=== PATIENT | female | born 1940 | race Caucasian/White ===

== ENCOUNTER 2018-12-09 12:03 | Inpatient (IN) ==
--- NOTE | 2018-12-09 12:48 | Diag Imaging Result Doc PS360 ---
EXAM: CHEST-PORTABLE HISTORY: sob/cp TECHNIQUE: Single view COMPARISON: 06/28/2017 FINDINGS: The lungs are well expanded. The heart is mildly prominent. The vessels are not distended. There are no infiltrates. No effusion identified. IMPRESSION: Stable chest Electronically signed by Calin Holliday 12/09/2018 12:46 PM
[2018-12-09] MEDS ORDERED: LOPRESSOR IV ONE (12:58)
[2018-12-09 13:07] LABS: BASO# 0.04 X1000 (0.0-0.2); BASO% 0.2 % (0.0-0.8); EOS# 0.01 X1000 (0.0-0.7); EOS% 0.1 % (0.0-10.0); HEMATOCRIT 44.1 % (37.0-47.0); HEMOGLOBIN 14.4 g/dL (12.0-16.0); IMM GRAN# 0.05 X1000 (0.0-0.04); IMM GRAN% 0.3 % (0.0-0.5); LYMPH# 1.42 X1000 (1.2-3.4); LYMPH% 8.5 % (20.5-51.1); MCH 27.7 PG (27-31); MCHC 32.7 g/dL (33-37); MCV 84.8 FL (81-99); MONO# 1.43 X1000 (0.11-0.59); MONO% 8.6 % (1.7-9.3); MPV 11.7 FL (7.4-10.4); NEUT% 82.3 % (42.2-75.2); PLT 272 X1000 (130-400); RDW 15.4 % (11.5-14.5); WBC 16.65 X1000 (4.8-10.8)
[2018-12-09 13:11] LABS: INR 1.75; PROTIME 20.8 Seconds (11.0-16.0)
[2018-12-09 13:12] LABS: PTT 36.3 Seconds (22.3-41.8)
[2018-12-09 13:26] LABS: AGAP 12; ALB/GLOB RATIO 1.5; ALKALINE PHOSPHATASE 165 U/L (32-104); BUN 12 mg/dL (8-22); CALCIUM 10.6 mg/dL (8.8-10.2); CHLORIDE 100 mmol/L (98-107); CK PROFILE 40 U/L (24-173); COSMO 279; CREATININE 0.7 mg/dL (0.5-0.9); ESTIMATED GFR > 60; GLUCOSE 201 mg/dL (70-104); GOT 24 U/L (10-30); GPT 17 U/L (10-36); POTASSIUM 4.2 mmol/L (3.5-5.1); SODIUM 137 mmol/L (136-145); TCO2 25 mmol/L (25-35); TOTAL BILIRUBIN 0.95 mg/dL (0.20-1.00); TOTAL PROTEIN 6.7 g/dL (6.3-8.3)
--- NOTE | 2018-12-09 13:34 | EKG Report ---
Test Performed on : 12/09/2018 12:15:00 PM Test Reason : palpitations Blood Pressure : / mmHG Vent. Rate : 113 BPM Atrial Rate : 100 BPM P-R Int : 000 ms QRS Dur : 082 ms QT Int : 330 ms P-R-T Axes : 000 -65 041 degrees QTc Int : 452 ms Atrial fibrillation. with rapid ventricular response. Left axis deviation Possible Anterior infarct (cited on or before 13-JUN-2017) Abnormal ECG When compared with ECG of 28-JUN-2017 11:26, Vent. rate has increased BY 51 BPM Questionable change in initial forces of Septal leads T wave inversion no longer evident in Inferior leads Unconfirmed Result
--- NOTE | 2018-12-09 13:37 | Diag Imaging Result Doc PS360 ---
EXAM: CT HEAD W/O CONTRAST HISTORY: syncopal TECHNIQUE: CT head without contrast COMPARISON: None. FINDINGS: No parenchymal hemorrhage. No epidural or subdural hematoma. No subarachnoid hemorrhage. Mild chronic microvascular ischemic changes. No mass identified on this noncontrasted exam. No hydrocephalus. No sinus opacification. IMPRESSION: 1.No hemorrhage 2.Chronic microvascular ischemic changes This exam was performed using automated exposure control, adjustment of mA or kV according to patient size, and/or use of iterative reconstruction technique. Electronically signed by Calin Holliday 12/09/2018 1:34 PM
[2018-12-09 14:59] LABS: URINE SOURCE CLEAN CATCH
[2018-12-09 15:09] LABS: BILIRUBIN URINE NEGATIVE (NEGATIVE); BLOOD URINE TRACE (NEGATIVE); COLOR YELLOW; GLUCOSE URINE NEGATIVE (NEGATIVE); KETONE URINE NEGATIVE (NEGATIVE); LEUKOCYTES URINE NEGATIVE (NEGATIVE); NITRITE URINE NEGATIVE (NEGATIVE); PROTEIN URINE NEGATIVE (NEGATIVE); SP GRAVITY URINE 1.006; TURBIDITY URINE CLEAR (CLEAR); UR EPITHELIAL CELLS <10 /HPF (<10); URINE BACTERIA NEGATIVE /HPF; URINE RBC <10 /HPF (<10); URINE WBC <10 /HPF (<10); UROBILINOGEN URINE NORMAL (NORMAL)
[2018-12-09] MEDS ORDERED: LASIX IV ONE ×2 (15:30→15:46)
--- NOTE | 2018-12-09 15:35 | PROVIDER DOCUMENTATION ---
This chart was entered by Reba Aquino Scribe, acting as scribe for Maximus Escobedo MD. HPI-Cardiac General - General Chief Complaint: Palpitations Stated Complaint: "AFIB" DR SALAS REFERRED Time Seen by Provider: 12/09/18 12:17 Source: patient Allergies/Adverse Reactions: Patient Allergies Allergy/AdvReac Type Severity Reaction Status Date / Time Sulfa (Sulfonamide Allergy Mild RASH Verified 12/09/18 13:07 Antibiotics) Home Medications: Home Medication List Medication Instructions Recorded Confirmed Last Taken Type Zolpidem [Ambien] 0.5 - 1 tab PO QHS 12/28/15 12/09/18 02/01/16 06:00 History Furosemide 20 mg PO DAILY PRN 02/01/16 12/09/18 02/01/16 06:00 History Metoprolol Succinate E.r. [Toprol 100 mg PO QAM 02/01/16 12/09/18 02/01/16 21:00 History Xl] Potassium Chloride 10 meq PO DAILY PRN 02/01/16 12/09/18 02/01/16 21:00 History Rivaroxaban [Xarelto] 20 mg PO DAILY 02/01/16 12/09/18 02/01/16 21:00 History Digoxin 125 mcg PO DAILY 06/13/17 12/09/18 Unknown History Gabapentin 400 mg PO TID 06/13/17 12/09/18 Unknown History Insulin Glargine,Hum.rec.anlog 10 unit SQ DAILY 06/13/17 12/09/18 Unknown History [Tomauricio Baron] Levothyroxine [Synthroid] 50 microgm PO DAILY 06/13/17 12/09/18 Unknown History Lipase/Protease/Amylase [Adarsh Perez 3 tab PO TID 06/13/17 12/09/18 Unknown History 24,000 Units Capsule] Omeprazole 40 mg PO DAILY 06/13/17 12/09/18 Unknown History Ondansetron HCl [Zofran] 4 mg PO PRN PRN 06/13/17 12/09/18 Unknown History Insulin Lispro [Humalog] 1 unit SQ DIRECTED 12/09/18 12/09/18 Unknown History Lisinopril [Prinivil] 1 tab PO DAILY 12/09/18 12/09/18 Unknown History - History of Present Illness-Cardiac Nature of Presenting Problem: 78 yowf c/o pt was referred by Dr. Salas due to afib. pt sts she had a syncopal episode this am when in bathroom, pt has sore spot on occipital but no other injuries. pt sts last night got up 6-7 times to use restroom. pt has hx of afib. pt rx xorelto at night. pt hasn't missed rx. pt cardiac dr is dr. rico. pt fell 5-6 wks ago. pt a&ox3 and nontoxic. pt is tachy in room. Quality of Pain: reports: none Severity in ED: mild Onset/Duration: this morning Timing: still present Context/Activities at Onset: reports: light activity Palpitation Quality: fast/pounding heart beat History of arrythmia: reports: A-Fib Associated Symptoms: reports: denies symptoms Similar Symptoms Previously?: Yes (fell 5-6wks ago) Review of Systems - Adult - REVIEW OF SYSTEMS - ADULT Constitutional: reports: no symptoms reported Eyes: reports: no symptoms reported Ears, Nose, Mouth & Throat: reports: no symptoms reported Cardiovascular: reports: see HPI, irregular heart rate (tachy), syncope. denies: chest pain, heart murmur, orthopnea Respiratory: reports: no symptoms reported. denies: dyspnea on exertion, shortness of breath, wheezing Gastrointestinal: reports: no symptoms reported Genitourinary: reports: no symptoms reported Musculoskeletal: reports: no symptoms reported Integumentary: reports: no symptoms reported Neurological: reports: no symptoms reported Psychiatric: reports: no symptoms reported Endocrine: reports: no symptoms reported Hematologic/Lymphatic: reports: no symptoms reported Allergic/Immunologic: reports: no symptoms reported All Other Systems: Reviewed and Negative Past History - Adult - PAST MEDICAL HISTORY-ADULT Review of Records: reports: Old Records Reviewed, Nursing Assessment Review, Medications Reviewed, Social history reviewed & non-contributory. Major Childhood Illnesses: reports: history unknown Cardiovascular: reports: A-Fib, HTN Respiratory: reports: denies history Gastrointestinal: reports: GERD, other (bowel issues) Obstetrical/Gynecological: reports: denies history Genitourinary: reports: kidney stones, chronic UTI's Musculoskeletal: reports: denies history Neurological: reports: denies history Endocrine/Immune: reports: Diabetes, Leukemia (CLL), thyroid disorder Other Conditions: reports: other cancer, other (DVT) - PRIOR SURGERIES/PROCEDURES Surgical/Procedure History: reports: reviewed, not pertinent - IMMUNIZATION STATUS Childhood Immunizations: See Nurse Assessment Flu Vaccine: See Nurse Assessment - FAMILY HISTORY Family History: reviewed, not pertinent - SOCIAL HISTORY Smoking: non-smoker Substance Use: none/never Physical Exam-General - PHYSICAL EXAM-ADULT Initial Vital Signs Reviewed: Yes - CONSTITUTIONAL General Appearance: appears well, alert, no apparent distress. negative: cachetic, lethargic, slow to respond - EYES Eyes: PERRL/EOMI, pink conjunctivae - HEAD, EARS, NOSE, MOUTH & THROAT HENMT: normocephalic/atraumatic, moist mucous membranes, normal ENT inspection - NECK Neck: non-tender, full range of motion, supple, normal inspection - RESPIRATORY Respiratory: chest non-tender, lungs clear, normal breath sounds - CARDIOVASCULAR Cardiovascular: normal peripheral pulses, no edema, no gallop, no JVD, no murmur , tachycardia. negative: regular rate, rhythm, JVD, bradycardia, extra beats - GASTROINTESTINAL (ABDOMEN) Abdominal Exam: normal bowel sounds, non tender, soft - LYMPHATIC Lymphatic: no adenopathy - MUSCULOSKELETAL Back Exam: normal inspection, no CVA tenderness, no vertebral tenderness Extremity: normal range of motion, non-tender, normal inspection Peripheral Pulses: dorsalis-pedis (R): 2+, dorsalis-pedis (L): 2+ - SKIN Integumentary: normal color, normal turgor, warm/dry - NEUROLOGIC Neurologic: grossly normal, no motor/sensory deficits - PSYCHIATRIC Psych/Mental Status: normal mood/affect, normal thought content, normal thought process, oriented x 3 Progress - PLAN OF CARE/RESULTS Progress/Plan/Lab Results: Vital Signs - 8 hr 12/09/18 12:06 12/09/18 12:21 12/09/18 12:50 Temperature 97.9 F Pulse Rate 119 H 112 H 114 H Respiratory Rate 18 19 20 Blood Pressure 135/75 156/82 140/83 O2 Sat by Pulse Oximetry 96 96 97 12/09/18 13:33 12/09/18 13:48 12/09/18 14:02 Temperature Pulse Rate 101 H 106 H 88 Respiratory Rate 12 14 Blood Pressure 140/97 142/85 134/81 O2 Sat by Pulse Oximetry 96 95 97 12/09/18 14:15 12/09/18 14:17 12/09/18 14:33 Temperature Pulse Rate 82 81 90 Respiratory Rate Blood Pressure 136/81 126/94 O2 Sat by Pulse Oximetry 97 97 97 12/09/18 14:47 12/09/18 15:00 Temperature Pulse Rate 85 81 Respiratory Rate Blood Pressure 130/72 O2 Sat by Pulse Oximetry 97 97 Laboratory Results - last 24 hr 12/09/18 12/09/18 12/09/18 12:50 12:50 12:50 WBC 16.65 H RBC 5.20 Hgb 14.4 Hct 44.1 MCV 84.8 MCH 27.7 MCHC 32.7 L RDW Std Deviation 15.4 H Plt Count 272 MPV 11.7 H Immature Gran % (Auto) 0.3 Neut % (Auto) 82.3 H Lymph % (Auto) 8.5 L [place] % (Auto) 8.6 Eos % (Auto) 0.1 Baso % (Auto) 0.2 Immature Gran # (Auto) 0.05 H Neut # (Auto) 13.70 H Lymph # (Auto) 1.42 [place] # (Auto) 1.43 H Eos # (Auto) 0.01 Baso # (Auto) 0.04 PT INR PTT (Actin FS) Sodium 137 Potassium 4.2 Chloride 100 Carbon Dioxide 25 Anion Gap 12 BUN 12 Creatinine 0.7 Estimated GFR/1.73 m2 > 60 BUN/Creatinine Ratio 17 Glucose 201 H Calculated Osmolality 279 Calcium 10.6 H Total Bilirubin 0.95 AST 24 ALT 17 Alkaline Phosphatase 165 H Creatine Kinase 40 Troponin T [id number]-Pddqemnkhhs Pept 3684 H Total Protein 6.7 Albumin 4.0 Globulin 2.7 Albumin/Globulin Ratio 1.5 Urine Source Urine Color Urine Turbidity Urine pH Ur Specific Angela Urine Protein Ur Glucose (Stick) Ur Ketones (Stick) Urine Blood Urine Nitrite Urine Bilirubin Urobilinogen Dipstick Urine Leukocytes Urine WBC (Auto) Urine RBC (Auto) U Epithel Cells (Auto) Urine Bacteria (Auto) 12/09/18 12/09/18 12/09/18 12:50 12:50 14:00 WBC RBC Hgb Hct MCV MCH MCHC RDW Std Deviation Plt Count MPV Immature Gran % (Auto) Neut % (Auto) Lymph % (Auto) [place] % (Auto) Eos % (Auto) Baso % (Auto) Immature Gran # (Auto) Neut # (Auto) Lymph # (Auto) [place] # (Auto) Eos # (Auto) Baso # (Auto) PT 20.8 H INR 1.75 PTT (Actin FS) 36.3 Sodium Potassium Chloride Carbon Dioxide Anion Gap BUN Creatinine Estimated GFR/1.73 m2 BUN/Creatinine Ratio Glucose Calculated Osmolality Calcium Total Bilirubin AST ALT Alkaline Phosphatase Creatine Kinase Troponin T < 0.010 Tba-[id number]-[id number] Pept Total Protein Albumin Globulin Albumin/Globulin Ratio Urine Source CLEAN CATCH Urine Color YELLOW Urine Turbidity CLEAR Urine pH 7.0 Ur Specific Angela 1.006 Urine Protein NEGATIVE Ur Glucose (Stick) NEGATIVE Ur Ketones (Stick) NEGATIVE Urine Blood TRACE A Urine Nitrite NEGATIVE Urine Bilirubin NEGATIVE Urobilinogen Dipstick NORMAL Urine Leukocytes NEGATIVE Urine WBC (Auto) <10 Urine RBC (Auto) <10 U Epithel Cells (Auto) <10 Urine Bacteria (Auto) NEGATIVE Orders Category Date Time Status Cardiac Monitoring DIRECTED Care 12/09/18 12:28 Active Oxygen Therapy- ED Nursing DIRECTED Care 12/09/18 12:28 Active Saline Loc NOW Care 12/09/18 12:28 Active CHEST-PORTABLE [RAD] Stat Exams 12/09/18 12:[address] HEAD W/O CONTRAST [CT] Stat Exams 12/09/18 12:30 Completed CBC WITH ELECTRONIC DIFF [HEME] Stat Lab 12/09/18 12:50 Completed CK PROFILE [SP CHEM] Stat Lab 12/09/18 12:50 Completed COMPREHENSIVE METABOLIC PANEL [CHEM] Stat Lab 12/09/18 12:50 Completed DIGOXIN [TDM] Stat Lab 12/09/18 15:21 Ordered PRO B-NATRIURETIC PEPTIDE Stat Lab 12/09/18 12:50 Completed PROTIME WITH INR [COAG] Stat Lab 12/09/18 12:50 Completed PTT [COAG] Stat Lab 12/09/18 12:50 Completed TROPONIN T Stat Lab 12/09/18 12:50 Completed TSH Routine Lab 12/09/18 15:21 Ordered URINALYSIS W/POSS RFLX CULT [URINALYSIS] Stat Lab 12/09/18 14:00 Completed Furosemide [Lasix] Med 12/09/18 15:30 Once 40 mg IV NOW ONE Metoprolol [Lopressor] Med 12/09/18 12:58 Discontinued 5 mg IV NOW ONE CP/SOB/Palp >45 yrs of Age Stat Oth 12/09/18 12:28 Ordered EKG [EKG] Stat Ther 12/09/18 12:28 Draft Result Diagrams: 12/09/18 12:50 12/09/18 12:50 - XRAY 1 XRAY Study: Chest Impression: Normal, See EMR Report ( EXAM: CHEST-PORTABLE HISTORY: sob/cp TECHNIQUE: Single view COMPARISON: 06/28/2017 FINDINGS: The lungs are well expanded. The heart is mildly prominent. The vessels are not distended. There are no infiltrates. No effusion identified. IMPRESSION: Stable chest Electronically signed by Calin Holliday 12/09/2018 12:46 PM) - CT/MRI 1 CT Study: Head Impression: Normal, See EMR Report (EXAM: CT HEAD W/O CONTRAST HISTORY: syncopal TECHNIQUE: CT head without contrast COMPARISON: None. FINDINGS: No parenchymal hemorrhage. No epidural or subdural hematoma. No subarachnoid hemorrhage. Mild chronic microvascular ischemic changes. No mass identified on this noncontrasted exam. No hydrocephalus. No sinus opacification. IMPRESSION: 1.No hemorrhage 2.Chronic microvascular ischemic changes This exam was per formed using automated exposure control, adjustment of mA or kV according to patient size, and/or use of iterative reconstruction technique. Electronically signed by Calin Holliday 12/09/2018 1:34 PM) Comparison with other Films: no prior study - CONSULTS/PCP/HOSPITALIST Notification #1 *Consult/PCP/Hospitalist*: Dr. Rico Time Discussed: 12:33 Consult Disposition: Will see in ED #2 Consult: hospitalist-Dr. Kuhn Time Discussed: 15:31 Consult Disposition: Admit Departure - Departure Date of Disposition Decision: 12/09/18 Time of Disposition Decision: 15:32 DIAGNOSIS: A-fib, CHF (congestive heart failure) Disposition: ADMITTED INPATIENT 09 Certified Medical Emergency: Urgent Condition: Good Referrals and Follow-Ups: Odalys Salas MD [Primary Care Provider] - - Critical Care Note This patient required my direct & personal management of CC.: No Attestation - Physician/ OMER Attestation Patient care was provided by Advanced Practice Provider:: No The physician spent face to face time with patient:: Yes Advanced Practice Provider documentation review:: Supervising physician onsite and consulted in the evaluation and care of this patient. The physician did have a face to face encounter with the patient. This chart was documented by the indicated scribe, (Reba Aquino, Lashanda) and accurately reflects the services I performed and decisions made by me, Maximus Escobedo MD, as attested by the provider's signature.
[2018-12-09] MEDS ORDERED: AMBIEN PO PRN (15:44)
--- NOTE | 2018-12-09 16:08 | CARDIOLOGY CONSULTATION ---
DATE: 12/09/2018 CHIEF COMPLAINT ON PRESENTATION: Syncope. HISTORY OF PRESENT ILLNESS: Ms. Hernandez is a 78-year-old white female with a history of chronic atrial fibrillation who presented for episode of syncope that occurred this morning. She was apparently in her upright position walking in her kitchen. She had no preceding symptoms. Next thing you know she was waking up on the floor. She had no bowel or bladder incontinence. She reports compliance with her medications at home. She has had a couple of other episodes of syncope that have occurred over the last several weeks. One of these seem to occur after she had taken some Ambien and not gone to bed. The preceding episodes prior to this morning also were associated with some lightheadedness and dizziness. She reports good oral intake. No nausea, vomiting and no diarrhea. She has had no infectious symptoms such as cough, dysuria or fevers. PAST MEDICAL HISTORY: 1. Significant for chronic atrial fibrillation maintained on Xarelto. 2. Hypertension. 3. Diabetes. 4. History of GI bleed. 5. Varicose vein status post radiofrequency ablation of bilateral GSVs. 6. Reflux disease. SOCIAL HISTORY: She is . No tobacco use. FAMILY HISTORY: Significant for hypertension. REVIEW OF SYSTEMS: A 10 system review of systems is negative except for those things mentioned in HPI. PHYSICAL EXAMINATION: She is afebrile. Heart rate of 81, blood pressure 130/72.General: She is in no acute distress. HEENT: Oropharynx is moist. Normal dentition. Eye examination shows pink conjunctivae. White sclerae. Neck: Shows no obvious thyromegaly or thyroid tenderness. Cardiovascular: She sounds to be in a irregularly irregular rhythm which is consistent with atrial fibrillation. She has no murmur. She has no S3. She has no lower extremity edema. Her chest exam sounds clear bilaterally. She has no increased work of breathing. Abdomen: Soft, nontender, nondistended. She has no obvious organomegaly. Skin: Warm and dry throughout without any rashes. Neurological: She is moving all extremities well. She has no lateralizing deficits. PERTINENT DATA: Her EKG shows atrial fibrillation with RVR. On presentation she has some poor R- wave progression. Her head CT demonstrated no hemorrhage, chronic microvascular ischemic changes. She had a chest x-ray that was unremarkable for any significant abnormalities. Her lab data shows a white count of 16.6, hematocrit 44, platelet count of 272,000. Her INR is 1.7. Sodium 137, potassium 4.2, BUN 12, creatinine 0.7. ProBNP was 3684 with a negative troponin. Urinalysis was unremarkable. ASSESSMENT: Ms. Hernandez is a 78-year-old female with chronic atrial fibrillation who presented with a syncopal episode. PLAN: We will watch her overnight on telemetry. Check an echocardiogram. I have checked a digoxin level as well as a TSH. I will give her a single dose of Lasix at 40 mg IV x1. We will recheck laboratories in the morning. cc: Dayne Rico MD
[2018-12-09] MEDS ORDERED: TYLENOL PO PRN (16:40)
[2018-12-09] MEDS ORDERED: KLOR-CON PO PRN (16:44)
[2018-12-09] MEDS ORDERED: ZOFRAN PO PRN (16:44)
[2018-12-09] MEDS ORDERED: LASIX PO PRN (16:44)
[2018-12-09] MEDS ORDERED: PATIENT'S OWN MED PO SCH ×2 (17:00→19:00)
[2018-12-09] MEDS: NEURONTIN PO SCH (18:13)
--- NOTE | 2018-12-09 18:52 | HISTORY AND PHYSICAL ---
ADDENDUM: The patient seen and examined by me [id number]. All the laboratory, vital signs and images were reviewed. This patient had an episode of syncope this morning. Apparently, she was sitting on the toilet, then she stood up, did a couple steps and she basically passed out. As per the patient, she has been having dizziness when she tries to change from the sitting position to the standing position. She needs to wait some time and then walk. That sounds to me like orthostatic hypotension, so I will check that. She is not complaining of chest pain or shortness of breath. Basically, her physical exam is benign, except that she is in atrial fibrillation, rate controlled. I will continue with most of her medications. She will be on sliding scale insulin and tomorrow, hopefully, she will have an echocardiogram done and also an EKG in the morning. Cardiology Department on board. I agree with the rest of the nurse practitioner's assessment and plan. cc: Delroy Raymond MD
--- NOTE | 2018-12-09 19:42 | HISTORY AND PHYSICAL ---
PRIMARY CARE M.D.: Dr. Brady. CHIEF COMPLAINT: Syncopal episode. HISTORY OF PRESENT ILLNESS: Mrs. Hernandez is a 78-year-old female, with a history of chronic atrial fib, who states this morning she woke up and she was at her home and she had a syncopal episode, and she apparently hit her head. She did not have any symptoms after she hit her head. She just remembers waking up on the floor. She stated she had one other episode about a week ago where she stated she almost passed out, but she did not actually pass out at that time. The patient is not complaining of any problems at this time. She is not complaining of any lightheadedness or dizziness. She is not complaining of any chest pain. She is not complaining of any nausea, vomiting, or diarrhea. Dr. Dayne Rico did see the patient in the ER. The patient does have a history of atrial fibrillation and she is in atrial fibrillation right now at a rate of 70s and 80s on the monitor. The patient did have a head CT done in the ER that did not show any acute changes. Laboratory findings in the ER did show a slightly elevated white blood cell count of 16.65 and an elevated proBNP of 3684. The patient will be admitted to the PVC floor. We will do an echocardiogram on the patient and monitor the patient closely. Dr. Rico did order the patient to receive a dose of Lasix tonight. We will reorder her home medications. PAST MEDICAL HISTORY: Significant for: 1. Chronic atrial fib, maintained on Xarelto. 2. Hypertension. 3. Diabetes. 4. History of gastrointestinal bleed. 5. Varicose vein, status post radiofrequency ablation of bilateral GOCs. 6. Reflux disease. 7. Lymphoma. PAST SURGICAL HISTORY: 1. Hernia surgery 2 to 3 years ago. 2. 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 3. Knee replacement bilaterally. 4. Cataract surgery. 5. Corrective lens surgeries. FAMILY HISTORY: Significant for hypertension. SOCIAL HISTORY: She is . Denies any tobacco, alcohol, or illicit drug abuse. ALLERGIES: Sulfa. MEDICATIONS: 1. Ambien 10 mg, 1/2 to 1 tablet p.o. at bedtime. 2. Potassium chloride 10 mEq p.o. daily. 3. Xarelto 20 mg p.o. daily. 4. Furosemide 20 mg p.o. daily p.r.n. 5. Metoprolol 100 mg p.o. q.a.m. 6. Gabapentin 400 mg p.o. t.i.d. 7. Creon 3 tablets p.o. t.i.d. 8. Synthroid 50 mcg p.o. daily. 9. Digoxin 125 mcg p.o. daily. 10. Toujeo 10 units subcu daily. 11. Omeprazole 40 mg p.o. daily. 12. Zofran 4 mg p.o. p.r.n. 13. Insulin Humalog 1 unit subcutaneous as directed. 14. Lisinopril 5 mg p.o. daily. REVIEW OF SYSTEMS: A 12 point review of systems has been obtained. All are negative except what is stated above in the HPI. PHYSICAL EXAMINATION: VITAL SIGNS: Temperature 98.1 degrees, pulse rate 81, respiratory rate 15, blood pressure 135/84, O2 saturation 96% on room air. Height 5 feet 4 inches. Weight 149 pounds. GENERAL: This is a 78-year-old female. She is in no acute distress. She is well nourished and well developed. HEENT: Atraumatic, normocephalic. Pupils equal, round, reactive to light. Sclerae are anicteric. Mucous membranes are moist. NECK: Supple. No lymphadenopathy. Trachea is midline. No JVD. No thyromegaly. No bruits. CARDIOVASCULAR: Irregular rate and rhythm. No murmurs, gallops, or rubs appreciated. RESPIRATORY: Lung sounds are clear with equal chest excursion. Respirations are nonlabored. No accessory muscle usage. GI: Abdomen is soft, nontender, and nondistended. Bowel sounds are present x4. NEUROLOGIC: Cranial nerves 2 through 12 are intact. The patient is awake, alert, oriented, able to follow all commands appropriately. MUSCULOSKELETAL: Full distal strength noted. No abnormalities. No deformities. EXTREMITIES: No clubbing, no cyanosis. There is mild trace edema noted to the pedal area. DP and PT pulses are present and palpable. SKIN: Warm, dry, intact. No rashes. No bruises. No diaphoresis. ASSESSMENT AND PLAN: 1. Congestive heart failure. We are going to admit this patient to the PVC unit. She was given one dose of Lasix 40 mg in the emergency room. We are going to continue all her home medications. Dr. Rico was consulted. He recommends us to do echocardiogram tomorrow. He ordered that, so we can get her echocardiogram tomorrow and go with his recommendations. 2. Atrial fibrillation. We did place the patient on ekg monitor tech. We are going to do some orthostatic blood pressures on her, and make sure her heart rate is not dropping. 3. Diabetes. We are going to do blood sugars before meals and at bedtime, and restart all her home diabetes medications, and provide her with sliding scale insulin per protocol. 4. Hypertension. I have restarted all her home blood pressure medications. 5. Gastrointestinal prophylaxis. She does take Prilosec at home. I have restarted that. 6. Deep venous thrombosis prophylaxis. She is on Xarelto at home. I will restart her Xarelto. We have admitted her to the PVC unit. We are going to get echocardiogram in the morning and restart all her home medications, and we have orthostatic blood pressures ordered on her. We will place her on ekg monitor tech. She was given Lasix in the emergency room. We are getting a chest x-ray in the morning. Repeat labs in the morning. We have consulted Dr. Rico. All other further treatment and recommendations pending hospital course and laboratory data. Dictated by SYLVIA Rose for Delroy Raymond MD cc: MD Dr. Hattie Evans Dr[address] MD [facility] CENTERJia
[2018-12-09] MEDS: HUMULIN R SUBQ SCH (20:11)
[2018-12-09] MEDS: CREON PO SCH (20:12)
[2018-12-10] MEDS: HUMULIN R SUBQ SCH ×2 (06:23→11:39)
[2018-12-10 06:49] LABS: AGAP 13; BUN 17 mg/dL (8-22); CALCIUM 9.7 mg/dL (8.8-10.2); CHLORIDE 99 mmol/L (98-107); COSMO 281; CREATININE 0.7 mg/dL (0.5-0.9); ESTIMATED GFR > 60; GLUCOSE 173 mg/dL (70-104); MAGNESIUM 1.6 mg/dL (1.5-2.7); POTASSIUM 3.7 mmol/L (3.5-5.1); SODIUM 138 mmol/L (136-145); TCO2 26 mmol/L (25-35)
[2018-12-10] MEDS ORDERED: PRILOSEC PO SCH (07:00)
[2018-12-10] MEDS ORDERED: SYNTHROID PO SCH (07:00)
--- NOTE | 2018-12-10 07:04 | Diag Imaging Result Doc PS360 ---
EXAM: CHEST-PORTABLE 12/10/2018 HISTORY: CHF TECHNIQUE: AP portable at 0553 COMMENT: There is probable COPD. The heart size is at the upper limits of normal. There is some atelectasis or pneumonia in the left lower lobe. This appears worse than on the previous examination of 12/09/2018. IMPRESSION: Atelectasis versus pneumonia left lower lobe. Electronically signed by Flavio Ricketts 12/10/2018 7:01 AM
[2018-12-10 07:17] LABS: HEMOGLOBIN A1C 6.8 % (4.8-6.0)
--- NOTE | 2018-12-10 07:19 | EKG Report ---
Test Performed on : 12/10/2018 06:47:08 AM Test Reason : syncope Blood Pressure : / mmHG Vent. Rate : 078 BPM Atrial Rate : 120 BPM P-R Int : 000 ms QRS Dur : 088 ms QT Int : 378 ms P-R-T Axes : 000 -53 012 degrees QTc Int : 430 ms Atrial fibrillation. Left anterior fascicular block Septal infarct (cited on or before 13-JUN-2017) Abnormal ECG When compared with ECG of 09-DEC-2018 12:15, (Unconfirmed) Questionable change in initial forces of Septal leads Confirmed by Sukhdev Puckett MD ([id number]) on 12/10/2018 11:08:07 PM
[2018-12-10 07:20] LABS: BASO# 0.03 X1000 (0.0-0.2); BASO% 0.4 % (0.0-0.8); EOS# 0.24 X1000 (0.0-0.7); EOS% 3.6 % (0.0-10.0); HEMATOCRIT 44.4 % (37.0-47.0); HEMOGLOBIN 14.5 g/dL (12.0-16.0); IMM GRAN# 0.02 X1000 (0.0-0.04); IMM GRAN% 0.3 % (0.0-0.5); LYMPH# 1.78 X1000 (1.2-3.4); LYMPH% 26.6 % (20.5-51.1); MCH 27.9 PG (27-31); MCHC 32.7 g/dL (33-37); MCV 85.4 FL (81-99); MONO# 1.04 X1000 (0.11-0.59); MONO% 15.6 % (1.7-9.3); MPV 12.3 FL (7.4-10.4); NEUT# 3.57 X1000 (1.4-6.5); NEUT% 53.5 % (42.2-75.2); PLT 190 X1000 (130-400); WBC 6.68 X1000 (4.8-10.8)
[2018-12-10] MEDS: CREON PO SCH ×3 (08:23→11:40)
[2018-12-10] MEDS: NEURONTIN PO SCH ×2 (08:24→13:07)
--- NOTE | 2018-12-10 08:52 | PROGRESS NOTE ---
DATE: 12/10/2018 SUBJECTIVE: This patient is resting comfortably in bed. Having checking the orthostatic vital signs and from the supine position to the sitting position and standing position, the blood pressure dropped significantly. At this moment, she is getting an echocardiogram done. Cardiology department on board. PHYSICAL EXAMINATION: Vital Signs: Temperature 97.6 degrees, pulse 71, respiratory rate 18, blood pressure 123/71, oxygen saturation 96 on room air. HEENT: Head normocephalic. No trauma. PERRLA. Neck: Supple. No JVD. No masses. Central trachea. Chest: Clear to auscultation. No wheezing. No rales. Cardiovascular: Irregularly irregular rate and rhythm. Abdomen: Soft, nontender, nondistended. No hepatosplenomegaly. Extremities: No edema, no clubbing, no cyanosis. Neurological Examination: The patient is alert. She is oriented x3. No focal deficits. LABORATORY DATA: WBC 6.6, hemoglobin 14.5, hematocrit 44.4, platelets 190,000. Sodium 138, potassium 3.7, chloride 99, bicarbonate 26, BUN 17, creatinine 0.7, glucose 173, calcium 9.7, magnesium 1.6. ProBNP 1226. ASSESSMENT AND PLAN: 1. Syncope. I do believe this is related to orthostatic hypotension. I have been checking her orthostatics and the most recent one, her blood pressure dropped from the supine position from 115/77 to 88/57 and then to the standing position to 58/43. As per the patient, every time she stands up, she needs to wait a little bit before starting walking. Otherwise, she will be dizzy. We need to rule out other causes of syncope. Pulse seems to be stable. She was a little bit tachycardic upon admission but has normalized. 2. History of congestive heart failure. B-type natriuretic peptide was elevated. She is not complaining of shortness of breath. She received a single dose of Lasix in the emergency room. B-type natriuretic peptide decreased compared with yesterday. Pending new echocardiogram. 3. History of atrial fibrillation. Continue home medications. 4. Diabetes, controlled. Hemoglobin A1c is good at 6.8. I will continue with the same management. 5. Hypertension, stable. Actually, she has been having low blood pressure on and off upon standing. 6. Gastrointestinal prophylaxis. She has been taking Prilosec at home. 7. Deep vein thrombosis prophylaxis. She is on anticoagulation due to her atrial fibrillation. I will continue with that. 8. History of lymphoma. Aware. No issues at this moment. cc: Delroy Raymond MD
[2018-12-10] MEDS ORDERED: PRINIVIL PO SCH (09:00)
[2018-12-10] MEDS ORDERED: TOPROL XL PO SCH (09:00)
[2018-12-10] MEDS ORDERED: INSULIN PEN NEEDLES ONE (09:00)
[2018-12-10] MEDS ORDERED: TOUJEO SOLOSTAR SUBQ SCH (09:00)
[2018-12-10] MEDS ORDERED: XARELTO PO SCH (09:00)
[2018-12-10] MEDS ORDERED: LANOXIN PO SCH (09:00)
[2018-12-10 11:11] VITALS: BP 129/80
--- NOTE | 2018-12-10 13:16 | CARDIOLOGY PROGRESS NOTE ---
DATE: 12/10/2018 SUBJECTIVE: Ms. Hernandez reports she has done well today. She has no complaints. PHYSICAL EXAMINATION: Vital Signs: She is afebrile, heart rate 86, blood pressure 129/80. General: She is in no acute distress. Cardiovascular: She sounds to be in an irregularly irregular rhythm, which is consistent with her atrial fibrillation. She has no lower extremity edema. Chest: Sounds clear bilaterally. No increased work of breathing. Abdomen: Soft, nontender. PERTINENT DATA: White count 6.6, her hematocrit is 44, her platelet count is 190,000. Her sodium is 138, potassium 3.7, BUN 17, creatinine 0.7. Her proBNP is down to 1926. Magnesium level 1.6. ASSESSMENT: Ms. Hernandez is a 78-year-old female with chronic atrial fibrillation, who presented with a syncopal spell. PLAN: Her atrial fibrillation seems to be well controlled. She has had an episode of diastolic failure, and diuresed well with her Lasix yesterday. I will place her on 20 mg of daily Lasix, which was changed from p.r.n. I have also changed her potassium over to daily. We will do a 2- week heart monitor from home to evaluate for arrhythmias. I will review her echocardiogram, and if this is unremarkable, then she can likely be discharged today. cc: Dayne Rico MD
--- NOTE | 2018-12-10 17:28 | DISCHARGE SUMMARY ---
ADMISSION DATE: 12/10/2018 DISCHARGE DATE: 12/10/2018 DISCHARGE DIAGNOSES: 1. Syncope. 2. Possible orthostatic hypotension. 3. History of congestive heart failure. 4. History of atrial fibrillation. 5. Diabetes with a hemoglobin A1c of 6.8. 6. Hypertension. 7. History of lymphoma. PROCEDURES PERFORMED: 1. Chest x-ray dated 12/09/2018: Impression stable chest. 2. Head CT scan dated 12/09/2018. No hemorrhage, chronic microvascular ischemic changes. 3. Chest x-ray dated 12/10/2018, atelectasis versus pneumonia, left lower lobe. 4. Echocardiogram dated 12/10/2018, pending results, but already evaluated by Cardiology Department and apparently stable. HOSPITAL COURSE: A 78-year-old female with a past medical history of atrial fibrillation, hypertension, diabetes, history of GI bleed, reflux disease varicose vein, status post radiofrequency ablation of bilateral GOCCS, and lymphoma admitted on 12/09/2018. Apparently, that morning she woke up, and she was in at her home, and she had a syncopal episode. She hit her head and CT scan has been negative. Apparently she was sitting on the toilet she stand up and started walking immediately and 2 steps after that she just felt dizzy had a syncopal episode. Apparently she did have any symptoms after she hit her head. She just remembers waking up on the floor. Apparently, she had 1 other episode about a week ago when she almost passed out. The patient was evaluated by Cardiology Department in the emergency room. She does have a history of atrial fibrillation and actually she pending hospitalization with atrial fibrillation and the rate was in the 70s and 80s. Like I mentioned before, the CT scan of the head was negative. Chest x- ray negative as well. Chest x-ray today show so showed some atelectasis versus pneumonia at the level lower lobe, but this patient is asymptomatic and actually the white blood cell count normalized without antibiotics. She is not complaining of cough or shortness of breath, fever or chills. Cardiology Department has checked her echocardiogram and it looks like this patient can be safely discharged home. I explained in detail to the patient and the family members at the bedside that she needs to be careful when she sits up or stand up because she can have dizziness due to orthostatic low blood pressure, especially now that she is going to be on Lasix and also she is on beta blockers. They seem to understand. She will be discharged home. She will follow up with her primary doctor in 1 to 2 weeks. Also, Dr. Rico will arrange a monitoring and evaluation advisor for this patient to be used at home for a few weeks and then re-evaluate this patient as an outpatient. At the moment of discharge this patient was completely asymptomatic, tolerating p.o. with no new issues. PHYSICAL EXAMINATION: Vital Signs: Temperature 97.6, pulse 86, respiratory rate 18, blood pressure 129/80, oxygen saturation 97% on room air. HEENT: Head normocephalic no trauma PERRLA. Neck: Supple. No JVD. No masses. Central trachea. Chest: Clear to auscultation. No wheezing. No rales. Cardiovascular: Irregularly irregular rate and rhythm. Abdomen: Soft, nontender, nondistended. No hepatosplenomegaly. Extremities: No edema, no clubbing, no cyanosis. Neurological: The patient is alert. She is oriented x3. No focal deficits. LABORATORY: WBC 6.6, hemoglobin 14.5, hematocrit 44.4, platelets 190,000. Sodium 138, potassium 3.7, chloride 99, bicarbonate 26, BUN 17, creatinine 0.7 glucose 173. Hemoglobin A1c 6.8, calcium 9.7, magnesium 1.6, TSH 1.52. DISCHARGE MEDICATIONS: 1. Digoxin 125 mcg p.o. daily. 2. Furosemide 20 mg p.o. daily. 3. Gabapentin 400 mg p.o. t.i.d. 4. Insulin glargine 10 units subcutaneous daily. 5. Insulin lispro as directed. 6. Levothyroxine 50mcg p.o. daily. 7. Creon 84808 units capsule 3 capsules p.o. t.i.d. 8. Lisinopril 1 tablet p.o. daily 5 mg. 9. Metoprolol succinate ER 100 mg p.o. q.a.m.. 10. Omeprazole 40 mg p.o. daily. 11. Zofran 4 mg p.o. as needed for nausea vomiting. 12. Potassium chloride 10 mg 10 mEq p.o. daily. 13. Xarelto 10 mg p.o. daily. 14. Zolpidem 1 tablet p.o. at bedtime, 5 to 10 mg daily. TIME SPENT: Dscharging this patient 30 minutes. cc: Delroy Raymond MD
--- NOTE | 2018-12-10 18:52 | ECHO REPORT ---
ORDER DATE: 12/10/2018 MEASUREMENTS: Septal thickness 0.9. Left ventricular internal diameter diastole 4.4, posterior wall thickness 0.9. Left ventricular internal diameter in systole 2.6, aortic root 3.3, left atrium 4.0. SUMMARY: 1. Fair quality study. 2. Aortic valve is trileaflet and opens normally on 2-dimensional images. Peak gradient across aortic valve is less than 10 mmHg. There is trace aortic regurgitation. Mitral, tricuspid, and pulmonic valves are without evidence of structural abnormality with very mild mitral regurgitation, mild tricuspid regurgitation, and trace pulmonic insufficiency. The estimated systolic PA pressure by Doppler is 25 to 30 mmHg. Aortic root is normal size. 3. Normal left ventricular dimensions demonstrated. Estimated left ejection fraction appears to be at least 70%. No regional wall motion abnormalities are evident. Left atrium is mildly enlarged on 2-dimensional images. Right atrium right ventricle are normal size with normal right ventricular systolic function. 4. No pericardial effusion. 5. Appearance of inferior vena cava suggests normal central venous pressure. cc: MD Dayne Kasper MD
[2018-12-11] MEDS ORDERED: LASIX PO SCH (09:00)
[2018-12-11] MEDS ORDERED: KLOR-CON PO SCH (09:00)
== END 2018-12-10 15:21 | disposition home or self-care (01) | DRG 312 ==
LOC: ED 12:03 → 2N 12:03
PROVIDERS: ATTEND Internal Medicine

== ENCOUNTER 2019-04-24 07:52 | Inpatient (IN) ==
[2019-04-24] MEDS ORDERED: ASPIRIN PO ONE (08:18)
[2019-04-24] MEDS ORDERED: ASPIRIN PR ONE (08:18)
--- NOTE | 2019-04-24 08:18 | EKG Report ---
Test Performed on : 04/24/2019 08:09:27 AM Test Reason : HEART RACING Blood Pressure : / mmHG Vent. Rate : 100 BPM Atrial Rate : 094 BPM P-R Int : 000 ms QRS Dur : 084 ms QT Int : 346 ms P-R-T Axes : 000 -60 -18 degrees QTc Int : 446 ms Atrial fibrillation. Left axis deviation Nonspecific ST abnormality Abnormal ECG When compared with ECG of 10-DEC-2018 06:47, Criteria for Septal infarct are no longer present Nonspecific T wave abnormality, worse in Inferior leads Unconfirmed Result
[2019-04-24 08:29] LABS: BASO# 0.05 X1000 (0.0-0.2); BASO% 0.4 % (0.0-0.8); EOS# 0.08 X1000 (0.0-0.7); EOS% 0.7 % (0.0-10.0); HEMOGLOBIN 13.6 g/dL (12.0-16.0); IMM GRAN# 0.06 X1000 (0.0-0.04); IMM GRAN% 0.5 % (0.0-0.5); LYMPH# 2.44 X1000 (1.2-3.4); LYMPH% 20.1 % (20.5-51.1); MCH 29.4 PG (27-31); MCHC 32.4 g/dL (33-37); MCV 90.9 FL (81-99); MONO# 1.19 X1000 (0.11-0.59); MONO% 9.8 % (1.7-9.3); MPV 12.2 FL (7.4-10.4); NEUT# 8.34 X1000 (1.4-6.5); NEUT% 68.5 % (42.2-75.2); PLT 237 X1000 (130-400); RBC 4.62 XMIL (4.2-5.4); RDW 15.5 % (11.5-14.5); WBC 12.16 X1000 (4.8-10.8)
--- NOTE | 2019-04-24 08:45 | Diag Imaging Result Doc PS360 ---
EXAM: CHEST-2 VIEWS 04/24/2019 HISTORY: HEART RACING TECHNIQUE: PA and lateral chest COMMENT: There is ill-defined opacity in the right upper lobe which was not present on 12/10/2018. Otherwise are has been no significant change. IMPRESSION: Right upper lobe pneumonia. Electronically signed by Flavio Ricketts 04/24/2019 8:43 AM
[2019-04-24 08:49] LABS: INR 1.61; PROTIME 19.5 Seconds (11.0-16.0)
[2019-04-24 08:50] LABS: PTT 43.1 Seconds (22.3-41.8)
[2019-04-24 08:56] LABS: AGAP 15; ALB/GLOB RATIO 1.6; ALBUMIN 3.9 g/dL (3.5-5.0); ALKALINE PHOSPHATASE 155 U/L (32-104); BUN 17 mg/dL (8-22); CALCIUM 10.2 mg/dL (8.8-10.2); CHLORIDE 100 mmol/L (98-107); CK PROFILE 26 U/L (24-173); COSMO 283; CREATININE 0.6 mg/dL (0.5-0.9); ESTIMATED GFR > 60; GLUCOSE 174 mg/dL (70-104); GOT 11 U/L (10-30); GPT 12 U/L (10-36); POTASSIUM 4.2 mmol/L (3.5-5.1); SODIUM 139 mmol/L (136-145); TCO2 24 mmol/L (25-35); TOTAL BILIRUBIN 1.18 mg/dL (0.20-1.00); TOTAL PROTEIN 6.3 g/dL (6.3-8.3)
--- NOTE | 2019-04-24 09:11 | PROVIDER DOCUMENTATION ---
HPI-General Adult - General Chief Complaint: Weakness Stated Complaint: HEART ISSUE/HEART PT Time Seen by Provider: 04/24/19 09:10 Source: patient Allergies/Adverse Reactions: Patient Allergies Allergy/AdvReac Type Severity Reaction Status Date / Time Sulfa (Sulfonamide Allergy Mild RASH Verified 04/24/19 10:55 Antibiotics) Home Medications: Home Medication List Medication Instructions Recorded Confirmed Last Taken Type Zolpidem [Ambien] 0.5 - 1 tab PO QHS 12/28/15 12/09/18 02/01/16 06:00 History Metoprolol Succinate E.r. [Toprol 100 mg PO QAM 02/01/16 12/09/18 02/01/16 21:00 History Xl] Rivaroxaban [Xarelto] 20 mg PO DAILY 02/01/16 12/09/18 02/01/16 21:00 History Digoxin 125 mcg PO DAILY 06/13/17 12/09/18 Unknown History Gabapentin 400 mg PO TID 06/13/17 12/09/18 Unknown History Insulin Glargine,Hum.rec.anlog 10 unit SQ DAILY 06/13/17 12/09/18 Unknown History [Tousabi Solostjessie] Levothyroxine [Synthroid] 50 microgm PO DAILY 06/13/17 12/09/18 Unknown History Lipase/Protease/Amylase [Creon Dr 3 tab PO TID 06/13/17 12/09/18 Unknown History 24,000 Units Capsule] Omeprazole 40 mg PO DAILY 06/13/17 12/09/18 Unknown History Ondansetron HCl [Zofran] 4 mg PO PRN PRN 06/13/17 12/09/18 Unknown History Insulin Lispro [Humalog] 1 unit SQ DIRECTED 12/09/18 12/09/18 Unknown History Lisinopril [Prinivil] 1 tab PO DAILY 12/09/18 12/09/18 Unknown History Furosemide 20 mg PO DAILY PRN #90 tab 12/10/18 Unknown Rx Potassium Chloride E.r. [Klor-Con] 10 meq PO DAILY #90 tab 12/10/18 Unknown Rx - History of Present Illness -Gen Adult Nature of Presenting Problems: Pt. is 79 yof that presents with c/o weakness and right sided CP. Pt. reports some SOB. states patient has not eaten in three days. She reports a Hx of A-fib and DM. Location of Pain/Injury: reports: chest. denies: none, head, face, mouth, neck, upper extremity, hand(s), abdomen, back, pelvis, genitalia, lower extremity, feet, upper body, lower body, generalized, other Pain Radiation: reports: no radiation. denies: arm(s), back, buttocks, chest, epigastric, feet, groin, jaw, flank (L), legs (lower), LLQ, LUQ, neck, periumbilical, flank (R), RLQ, RUQ, shoulder(s), scapula, scrotal, sternal notch, suprapubic, legs (upper), urethral, vaginal, other Quality of Pain: reports: aching. denies: burning, pressure, tightness Severity: reports: mild. denies: moderate, severe Onset/Duration: reports: gradual, 3 days ago Timing: reports: still present. denies: improving, intermittent, getting worse Context/Activities at Onset: reports: none. denies: light activity, moderate activity, vigorous activity, recent emotional stress, recent physical stress, recent trauma history, possible bad food, cold exposure, eating, out of country travel, rest, sleep, sexual activity, other Modifying Factors: improves with: nothing Associated Symptoms: reports: chest pain, cough, fever/chills, loss of appetite, malaise, shortness of breath, weakness. denies: denies symptoms, anxiety, arm pain, back/neck pain, constipation, diaphoresis, diarrhea, dizziness, EENT symptoms, fatigue, genitourinary problems, headaches, heartburn, joint pain, muscle aches, sinus congestion/drainage, nausea, rash, seizure, sensory/motor loss, pain with inspiration, swelling/mass in abdomen, syncope, vomiting, trouble walking, other Similar Symptoms Previously?: Yes Recently seen or treated by another doctor?: No Review of Systems - Adult - REVIEW OF SYSTEMS - ADULT Constitutional: reports: see HPI, chills, fatique. denies: night sweats, weight gain, weight loss Eyes: reports: no symptoms reported Ears, Nose, Mouth & Throat: reports: no symptoms reported Cardiovascular: reports: see HPI, chest pain, palpitations. denies: orthopnea, poor circulation, syncope Respiratory: reports: see HPI, cough. denies: hemoptysis, pleurisy, shortness of breath Gastrointestinal: reports: no symptoms reported Genitourinary: reports: no symptoms reported Musculoskeletal: reports: no symptoms reported Integumentary: reports: no symptoms reported Neurological: reports: no symptoms reported Psychiatric: reports: no symptoms reported Past History - Adult - PAST MEDICAL HISTORY-ADULT Review of Records: reports: Old Records Reviewed, Nursing Assessment Review, Medications Reviewed, Social history reviewed & non-contributory. Major Childhood Illnesses: reports: history unknown Cardiovascular: reports: A-Fib, HTN Respiratory: reports: denies history Gastrointestinal: reports: GERD, other (bowel issues) Obstetrical/Gynecological: reports: denies history Genitourinary: reports: denies history Musculoskeletal: reports: denies history Neurological: reports: denies history Endocrine/Immune: reports: Diabetes, Leukemia (CLL), thyroid disorder Other Conditions: reports: other cancer, other (DVT) - PRIOR SURGERIES/PROCEDURES Surgical/Procedure History: reports: reviewed, not pertinent - IMMUNIZATION STATUS Childhood Immunizations: See Nurse Assessment Flu Vaccine: See Nurse Assessment - FAMILY HISTORY Family History: reviewed, not pertinent - SOCIAL HISTORY Smoking: denies Physical Exam-General - PHYSICAL EXAM-ADULT Initial Vital Signs Reviewed: Yes - CONSTITUTIONAL General Appearance: alert, moderate distress, lethargic. negative: anxious, slow to respond, obtunded, combative - EYES Eyes: PERRL/EOMI, pink conjunctivae - HEAD, EARS, NOSE, MOUTH & THROAT HENMT: normocephalic/atraumatic, moist mucous membranes, TMs normal, pharynx normal. negative: angioedema, frontal tenderness, maxillary tenderness - NECK Neck: non-tender, full range of motion, supple, normal inspection - RESPIRATORY Respiratory: lungs clear, normal breath sounds. negative: crackles, rales, rhonchi - CARDIOVASCULAR Cardiovascular: normal peripheral pulses, no JVD, tachycardia, irregularly irre gular - GASTROINTESTINAL (ABDOMEN) Abdominal Exam: normal bowel sounds, non tender, soft - LYMPHATIC Lymphatic: no adenopathy - MUSCULOSKELETAL Back Exam: normal inspection, no CVA tenderness, no vertebral tenderness Extremity: normal range of motion, non-tender, normal inspection Peripheral Pulses: radial (R): 2+, radial (L): 2+ - SKIN Integumentary: pallor. negative: cyanosis, erythema, swelling, tenderness - NEUROLOGIC Neurologic: grossly normal, no motor/sensory deficits - PSYCHIATRIC Psych/Mental Status: normal mood/affect, normal thought content, normal thought process, oriented x 3. negative: anxious, paranoid, tearful Progress - PLAN OF CARE/RESULTS Progress/Plan/Lab Results: Vital Signs - 8 hr 04/24/19 08:00 Temperature 97.5 F L Pulse Rate 96 H Respiratory Rate 16 Blood Pressure 144/78 O2 Sat by Pulse Oximetry 97 Laboratory Results - last 24 hr 04/24/19 04/24/19 04/24/19 08:13 08:13 08:13 WBC RBC Hgb Hct MCV MCH MCHC RDW Std Deviation Plt Count MPV Immature Gran % (Auto) Neut % (Auto) Lymph % (Auto) [place] % (Auto) Eos % (Auto) Baso % (Auto) Immature Gran # (Auto) Neut # (Auto) Lymph # (Auto) [place]ard # (Auto) Eos # (Auto) Baso # (Auto) PT INR PTT (Actin FS) Sodium 139 Potassium 4.2 Chloride 100 Carbon Dioxide 24 L Anion Gap 15 BUN 17 Creatinine 0.6 Estimated GFR/1.73 m2 > 60 BUN/Creatinine Ratio 28 Glucose 174 H Calculated Osmolality 283 Calcium 10.2 Total Bilirubin 1.18 H AST 11 ALT 12 Alkaline Phosphatase 155 H Creatine Kinase 26 Troponin T High Sens 11 Bxt-G-Ficuciekvih Pept 3054 H Total Protein 6.3 Albumin 3.9 Globulin 2.4 Albumin/Globulin Ratio 1.6 04/24/19 04/24/19 08:13 08:13 WBC 12.16 H RBC 4.62 Hgb 13.6 Hct 42.0 MCV 90.9 MCH 29.4 MCHC 32.4 L RDW Std Deviation 15.5 H Plt Count 237 MPV 12.2 H Immature Gran % (Auto) 0.5 Neut % (Auto) 68.5 Lymph % (Auto) 20.1 L Seward % (Auto) 9.8 H Eos % (Auto) 0.7 Baso % (Auto) 0.4 Immature Gran # (Auto) 0.06 H Neut # (Auto) 8.34 H Lymph # (Auto) 2.44 Seward # (Auto) 1.19 H Eos # (Auto) 0.08 Baso # (Auto) 0.05 PT 19.5 H INR 1.61 PTT (Actin FS) 43.1 H Sodium Potassium Chloride Carbon Dioxide Anion Gap BUN Creatinine Estimated GFR/1.73 m2 BUN/Creatinine Ratio Glucose Calculated Osmolality Calcium Total Bilirubin AST ALT Alkaline Phosphatase Creatine Kinase Troponin T High Sens Vve-[id number]-Idhnuqsrncf Pept Total Protein Albumin Globulin Albumin/Globulin Ratio Orders Category Date Time Status Cardiac Monitoring DIRECTED Care 04/24/19 08:18 Active Oxygen Therapy- ED Nursing DIRECTED Care 04/24/19 08:18 Active Saline Loc NOW Care 04/24/19 08:18 Active CHEST-2 VIEWS [RAD] Stat Exams 04/24/19 08:18 Completed CBC WITH ELECTRONIC DIFF [HEME] Stat Lab 04/24/19 08:13 Completed CK PROFILE [SP CHEM] Stat Lab 04/24/19 08:13 Completed COMPREHENSIVE METABOLIC PANEL [CHEM] Stat Lab 04/24/19 08:13 Completed PRO B-NATRIURETIC PEPTIDE Stat Lab 04/24/19 08:13 Completed PROTIME WITH INR [COAG] Stat Lab 04/24/19 08:13 Completed PTT [COAG] Stat Lab 04/24/19 08:13 Completed TROPONIN T HIGH SENSITIVITY Stat Lab 04/24/19 08:13 Completed Aspirin Med 04/24/19 08:18 Discontinued 300 mg DE NOW ONE Aspirin Med 04/24/19 08:18 Discontinued 325 mg PO NOW ONE CP/SOB/Palp >45 yrs of Age Stat Oth 04/24/19 08:18 Ordered EKG [EKG] Stat Ther 04/24/19 08:04 Draft Laboratory Tests 04/24/19 04/24/19 04/24/19 08:13 08:13 08:13 WBC RBC Hgb Hct MCV MCH MCHC RDW Std Deviation Plt Count MPV Immature Gran % (Auto) Neut % (Auto) Lymph % (Auto) Seward % (Auto) Eos % (Auto) Baso % (Auto) Immature Gran # (Auto) Neut # (Auto) Lymph # (Auto) Seward # (Auto) Eos # (Auto) Baso # (Auto) PT INR PTT (Actin FS) Sodium 139 Potassium 4.2 Chloride 100 Carbon Dioxide 24 L Anion Gap 15 BUN 17 Creatinine 0.6 Estimated GFR/1.73 m2 > 60 BUN/Creatinine Ratio 28 Glucose 174 H Calculated Osmolality 283 Calcium 10.2 Total Bilirubin 1.18 H AST 11 ALT 12 Alkaline Phosphatase 155 H Creatine Kinase 26 Troponin T High Sens 11 Ltn-G-Qmazgoquzyz Pept 3054 H Total Protein 6.3 Albumin 3.9 Globulin 2.4 Albumin/Globulin Ratio 1.6 Plasma Lactate Urine Source Urine Color Urine Turbidity Urine pH Ur Specific Elizabeth Urine Protein Ur Glucose (Stick) Ur Ketones (Stick) Urine Blood Urine Nitrite Urine Bilirubin Urobilinogen Dipstick Urine Leukocytes Urine WBC (Auto) Urine RBC (Auto) U Epithel Cells (Auto) Urine Bacteria (Auto) 04/24/19 04/24/19 04/24/19 08:13 08:13 09:50 WBC 12.16 H RBC 4.62 Hgb 13.6 Hct 42.0 MCV 90.9 MCH 29.4 MCHC 32.4 L RDW Std Deviation 15.5 H Plt Count 237 MPV 12.2 H Immature Gran % (Auto) 0.5 Neut % (Auto) 68.5 Lymph % (Auto) 20.1 L Seward % (Auto) 9.8 H Eos % (Auto) 0.7 Baso % (Auto) 0.4 Immature Gran # (Auto) 0.06 H Neut # (Auto) 8.34 H Lymph # (Auto) 2.44 Seward # (Auto) 1.19 H Eos # (Auto) 0.08 Baso # (Auto) 0.05 PT 19.5 H INR 1.61 PTT (Actin FS) 43.1 H Sodium Potassium Chloride Carbon Dioxide Anion Gap BUN Creatinine Estimated GFR/1.73 m2 BUN/Creatinine Ratio Glucose Calculated Osmolality Calcium Total Bilirubin AST ALT Alkaline Phosphatase Creatine Kinase Troponin T High Sens Erm-K-Uvondxxxiqu Pept Total Protein Albumin Globulin Albumin/Globulin Ratio Plasma Lactate 1.3 Urine Source Urine Color Urine Turbidity Urine pH Ur Specific Elizabeth Urine Protein Ur Glucose (Stick) Ur Ketones (Stick) Urine Blood Urine Nitrite Urine Bilirubin Urobilinogen Dipstick Urine Leukocytes Urine WBC (Auto) Urine RBC (Auto) U Epithel Cells (Auto) Urine Bacteria (Auto) 04/24/19 10:14 WBC RBC Hgb Hct MCV MCH MCHC RDW Std Deviation Plt Count MPV Immature Gran % (Auto) Neut % (Auto) Lymph % (Auto) Seward % (Auto) Eos % (Auto) Baso % (Auto) Immature Gran # (Auto) Neut # (Auto) Lymph # (Auto) Seward # (Auto) Eos # (Auto) Baso # (Auto) PT INR PTT (Actin FS) Sodium Potassium Chloride Carbon Dioxide Anion Gap BUN Creatinine Estimated GFR/1.73 m2 BUN/Creatinine Ratio Glucose Calculated Osmolality Calcium Total Bilirubin AST ALT Alkaline Phosphatase Creatine Kinase Troponin T High Sens Vmo-P-Pdbdninvaap Pept Total Protein Albumin Globulin Albumin/Globulin Ratio Plasma Lactate Urine Source CLEAN CATCH Urine Color YELLOW Urine Turbidity CLEAR Urine pH 6.0 Ur Specific Elizabeth 1.024 Urine Protein TRACE A Ur Glucose (Stick) NEGATIVE Ur Ketones (Stick) 40 A Urine Blood SMALL A Urine Nitrite NEGATIVE Urine Bilirubin SMALL A Urobilinogen Dipstick 2 A Urine Leukocytes NEGATIVE Urine WBC (Auto) <10 Urine RBC (Auto) 10-20 A U Epithel Cells (Auto) <10 Urine Bacteria (Auto) NEGATIVE Discussed results and plan of care with patient. Patient agrees with plan and verbalizes understanding. Result Diagrams: 04/24/19 08:13 04/24/19 08:13 - EKG 1 Time of EKG reading by physician:: 08:13 EKG Read and Signed by:: Pete Noonan EKG Interpretation (*Must complete 3 of following elements*): Normal Rate: 100 Rhythm: A-Fib QRS: normal DE Interval: normal ST Wave: normal - XRAY 1 XRAY Study: Chest ([facility] - [address] [facility] [address] [place], [place] [id number] [facility] - [address] [place] [address] Department of Imaging Patient: OBINNA PAYNE Date: 04/24/19#: [id number] : 1940DM Status: PRE ERAcct#: [id number] Age/Sex: 79/FRoom/Bed: Loc: ED Ordering Physician: Pete Noonan MD Family Physician: Odalys Brady MD Reason for Procedure: HEART RACING Signed EXAM: CHEST-2 VIEWS 04/24/2019 HISTORY: HEART RACING TECHNIQUE: PA and lateral chest COMMENT: There is ill-defined opacity in the right upper lobe which was not present on 12/10/2018. Otherwise are has been no significant change. IMPRESSION: Right upper lobe pneumonia. Electronically signed by Flavio Ricketts 04/24/2019 8:43 AM 04/24/19 0843 Interpreting Physician: Flavio Ricketts MD Dictated Date/Time: 04/24/19 0842 cc: Pete Noonan MD; Odalys Brady MD) XRAY Interpretation: See note - CONSULTS/PCP/HOSPITALIST Notification #1 *Consult/PCP/Hospitalist*: Dr. Brady Time Discussed: 11:02 Reason/Comments: Admission Consult Disposition: Admit Departure - Departure Date of Disposition Decision: 04/24/19 Time of Disposition Decision: 09:50 DIAGNOSIS: Weakness A-fib Qualifiers: Atrial fibrillation type: unspecified Qualified Code(s): I48.91 - Unspecified atrial fibrillation CHF (congestive heart failure) Qualifiers: Heart failure type: unspecified Heart failure chronicity: unspecified Qualified Code(s): I50.9 - Heart failure, unspecified Pneumonia Qualifiers: Pneumonia type: due to unspecified organism Laterality: right Lung location: upper lobe of lung Qualified Code(s): J18.1 - Lobar pneumonia, unspecified organism Disposition: ADMITTED INPATIENT 09 Certified Medical Emergency: Emergent Condition: Stable Referrals and Follow-Ups: Odalys Brady MD [Primary Care Provider] - - Critical Care Note This patient required my direct & personal management of CC.: No Attestation - Physician/ OMER Attestation Patient care was provided by Advanced Practice Provider:: Yes Advanced Practice Provider:: Yue Amos Advanced Practice Provider documentation review:: The Mid-level provider documentation, treatment plan and medical decision making was reviewed by the physician who agrees with all treatment and medical decision making by the MLP. The physician spent face to face time with patient:: No Advanced Practice Provider documentation review:: Supervising physician onsite and consulted in the evaluation and care of this patient. The physician did not have a face to face encounter with the patient.
[2019-04-24] MEDS ORDERED: ZITHROMAX 500 MG/NS 500 MG/250 ML IVPB IV ONE ×2 (09:26→15:00)
[2019-04-24] MEDS ORDERED: ROCEPHIN 1 GM in NS 50 ML IV ONE (09:26)
[2019-04-24 10:49] LABS: URINE SOURCE CLEAN CATCH
[2019-04-24 10:54] LABS: BILIRUBIN URINE SMALL (NEGATIVE); BLOOD URINE SMALL (NEGATIVE); COLOR YELLOW; GLUCOSE URINE NEGATIVE (NEGATIVE); KETONE URINE 40 mg/dL (NEGATIVE); LEUKOCYTES URINE NEGATIVE (NEGATIVE); NITRITE URINE NEGATIVE (NEGATIVE); PROTEIN URINE TRACE mg/dL (NEGATIVE); SP GRAVITY URINE 1.024; TURBIDITY URINE CLEAR (CLEAR); UR EPITHELIAL CELLS <10 /HPF (<10); URINE BACTERIA NEGATIVE /HPF; URINE WBC <10 /HPF (<10); UROBILINOGEN URINE 2 mg/dL (NORMAL)
[2019-04-24] MEDS ORDERED: NS 1,000 ML IV ONE (11:02)
[2019-04-24] MEDS ORDERED: ZOFRAN IV PRN (11:02)
[2019-04-24] MEDS ORDERED: TYLENOL PO PRN (11:02)
[2019-04-24] MEDS ORDERED: AMBIEN PO PRN ×2 (12:38→23:15)
[2019-04-24] MEDS ORDERED: NEURONTIN PO SCH (13:00)
[2019-04-24] MEDS: DOXYCYCLINE 100 MG in NS 250 ML IV SCH (14:01)
[2019-04-24] MEDS: CREON PO SCH ×2 (16:12→18:22)
[2019-04-24] MEDS: HUMALOG SUBQ SCH ×2 (16:24→22:16)
--- NOTE | 2019-04-24 17:39 | HISTORY AND PHYSICAL ---
CHIEF COMPLAINT: Weakness, nausea, and cough. HISTORY OF PRESENT ILLNESS: Ms. Hernandez is a 79-year-old lady who came into the emergency room today with 3 day history of nausea, along with vomiting and worsening generalized weakness associated with slight hacking cough. She denied having any fever or sputum. She denies having any other complaints. PAST MEDICAL HISTORY: 1. Chronic atrial fibrillation. 2. Carotid atherosclerosis. 3. Type 1 diabetes mellitus. 4. Hypertension. 5. Dyslipidemia. 6. Hypothyroidism. 7. Chronic lymphocytic leukemia. 8. Gastroesophageal reflux disease. 9. Osteoarthritis. 10. Insomnia. 11. Anxiety disorder. 12. 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 Jejunostomy was later on reversed. 13. History of osteopenia with a T-score of -1.1. 14. Cholecystectomy appendectomy and bilateral total knee arthroplasty. SOCIAL HISTORY: The patient does not smoke any tobacco products nor does she drink any alcohol. She lives here in [place] with her . FAMILY HISTORY: Noncontributory. ALLERGIES: Patient reports to be allergic to sulfa drugs. MEDICATIONS: Current home medications: 1. Creon 24,000 units 3 tablets with each meal as directed. 2. Digoxin 125 mcg orally once daily. 3. Furosemide 40 mg orally once daily in the morning. 4. Gabapentin 400 mg orally 3 times a day. 5. Humalog 7 units subcutaneously 3 times a day with meals plus sliding scale as directed up to 30 units a day. 6. Toujeo insulin 10 units subcutaneously every 24 hours as directed. 7. Levothyroxine 50 mcg orally once daily. 8. Lisinopril 5 mg orally once daily. 9. Loratadine 10 mg orally once daily. 10. Metoprolol ER 50 mg 2 tablets in the morning and 1 tablet in the evening every day. 11. Omeprazole 40 mg orally once daily in the morning. 12. Potassium chloride 10 mEq orally once daily. 13. Xarelto 20 mg orally once daily. 14. Zolpidem 10 mg 1/2 to 1 tablet orally once daily at bedtime as needed for insomnia. REVIEW OF SYSTEMS: A full 14-point review of systems was obtained that has been negative except for what pertinent findings were noted in the HPI. PHYSICAL EXAMINATION: VITAL SIGNS: Temperature 97.8 degrees, pulse 83 per minute, respiratory rate 14 per minute, blood pressure 146/485, pulse oximetry 97% on room air. GENERAL: Patient is alert and oriented x3. She does not appear to be in any acute distress. She does appear to be somewhat weak on appearance. HEENT: No acute findings noted. NECK: Supple without any thyromegaly. LYMPHATICS: No lymphadenopathy noted in the neck region. CHEST: Chest wall is nontender. CARDIOVASCULAR: First and second heart sounds are audible without any murmurs. Irregularly irregular rhythm is present. RESPIRATORY: System bilateral lung air entry is slightly decreased but there are no rales or rhonchi present on auscultation. GASTROINTESTINAL: System abdomen is soft and nondistended. It is nontender on palpation and normal bowel sounds are present. MUSCULOSKELETAL SYSTEM: No deformities are present. INTEGUMENTARY: Skin is warm, dry, and without any rash. NEUROLOGIC: No focal deficits are present. PSYCHIATRIC: Normal affect noted. GENITOURINARY: Deferred. DIAGNOSTIC DATA: CBC shows WBC count of 12.16 with 68.5 percent neutrophils and 20.1% lymphocytes. Comprehensive metabolic panel showed glucose levels of 174, total bilirubin of 1.18 and alkaline phosphatase of 155. Rest of the comprehensive metabolic panel is within normal limits. ProBNP is elevated at 3054. Troponin levels were negative. PT and PTT were found to be 19.5 and 43.1 respectively. Urinalysis showed 10 to 20 RBCs per high-power field and was negative for any leukocytes or bacteria. ECG obtained at the emergency room showed atrial fibrillation with a ventricular rate of 100 beats per minute. Chest x-ray obtained at the emergency room showed an ill-defined pasty in the right upper lobe that was not present on chest x-ray done on 12/10/2018 and is suspected of having right upper lobe infiltrate. IMPRESSION: 1. Right upper lobe pneumonia causing her to have generalized weakness and nausea/vomiting. 2. Chronic atrial fibrillation. 3. Type 1 diabetes mellitus. 4. Hypertension. 5. History of chronic lymphocytic leukemia. 6. 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 PLAN: The patient will be admitted to the medical floor here at [facility] and we will continue with ceftriaxone 1 g IV every 24 hours. I am also going to start her on doxycycline 100 mg IV every 12 hours. We will control her glucose levels with lispro insulin as per sliding scale and I will continue with Toujeo 10 units subcutaneously every 24 hours. I am going to switch her to Lasix 40 mg IV every 24 hours and continue with the rest of her routine home medications. We will monitor her electrolytes and renal function and will have repeat labs in the morning tomorrow. Blood cultures have been obtained and are pending at the time of this dictation. Further recommendations will be given as per hospital course. cc: Odalys Brady MD
[2019-04-24] MEDS: NEURONTIN PO SCH ×2 (18:11→22:33)
[2019-04-24] MEDS ORDERED: TOPROL XL PO SCH (21:00)
[2019-04-24] MEDS ORDERED: TOUJEO SOLOSTAR SUBQ SCH (21:00)
[2019-04-25] MEDS: DOXYCYCLINE 100 MG in NS 250 ML IV SCH (02:31)
[2019-04-25] MEDS ORDERED: INSULIN PEN NEEDLES ONE (04:56)
[2019-04-25 05:30] LABS: BASO# 0.05 X1000 (0.0-0.2); BASO% 0.5 % (0.0-0.8); EOS% 2.9 % (0.0-10.0); HEMATOCRIT 37.6 % (37.0-47.0); HEMOGLOBIN 12.1 g/dL (12.0-16.0); LYMPH% 28.7 % (20.5-51.1); MCH 29.5 PG (27-31); MCHC 32.2 g/dL (33-37); MCV 91.7 FL (81-99); MONO# 1.35 X1000 (0.11-0.59); MONO% 12.9 % (1.7-9.3); NEUT# 5.66 X1000 (1.4-6.5); PLT 238 X1000 (130-400); RDW 15.4 % (11.5-14.5); WBC 10.46 X1000 (4.8-10.8)
[2019-04-25 05:44] LABS: AGAP 11; BUN 15 mg/dL (8-22); CALCIUM 9.7 mg/dL (8.8-10.2); CHLORIDE 104 mmol/L (98-107); COSMO 280; CREATININE 0.6 mg/dL (0.5-0.9); ESTIMATED GFR > 60; GLUCOSE 125 mg/dL (70-104); MAGNESIUM 1.7 mg/dL (1.5-2.7); POTASSIUM 3.8 mmol/L (3.5-5.1); SODIUM 139 mmol/L (136-145); TCO2 24 mmol/L (25-35)
[2019-04-25] MEDS: PRILOSEC PO SCH ×2 (05:51→06:31)
[2019-04-25] MEDS: SYNTHROID PO SCH ×2 (05:51→06:32)
[2019-04-25] MEDS: HUMALOG SUBQ SCH ×2 (06:31→12:30)
[2019-04-25] MEDS ORDERED: XARELTO PO SCH (08:00)
[2019-04-25] MEDS ORDERED: PRINIVIL PO SCH (09:00)
[2019-04-25] MEDS ORDERED: TOUJEO SOLOSTAR SUBQ SCH (09:00)
[2019-04-25] MEDS ORDERED: LASIX IV SCH (09:00)
[2019-04-25] MEDS ORDERED: TOPROL XL PO SCH (09:00)
[2019-04-25] MEDS ORDERED: NEURONTIN PO SCH (09:00)
[2019-04-25] MEDS ORDERED: LANOXIN PO SCH (09:00)
[2019-04-25] MEDS ORDERED: KLOR-CON PO SCH (09:00)
[2019-04-25] MEDS: CREON PO SCH ×2 (09:21→12:27)
[2019-04-25] MEDS ORDERED: ROCEPHIN 1 GM in NS 50 ML IV SCH (11:00)
[2019-04-25 12:11] VITALS: BP 124/67
[2019-04-25] MEDS ORDERED: ROCEPHIN 1 GM in NS 50 ML IV ONE (12:17)
--- NOTE | 2019-04-25 21:47 | DISCHARGE SUMMARY ---
ADMISSION DATE: 04/24/2019 DISCHARGE DATE: 04/25/2019 DISCHARGE DIAGNOSES: 1. Ill-defined density in right upper lobe, suspected of having pneumonia. 2. Chronic atrial fibrillation. 3. Type 1 diabetes mellitus. 4. Hypertension. 5. History of chronic lymphocytic leukemia. 6. History of Whipple's procedure for duodenal tubular adenoma. HOSPITAL COURSE: The patient was seen at the emergency room yesterday with 3 days history of nausea, along with vomiting and worsening generalized weakness. She was also having slight cough, but denied having any fever or sputum. She was found to have leukocytosis with right upper lobe lung ill-defined finding that was suspected of having pneumonia. Because of the patient being having generalized weakness and not feeling well, she was admitted to the hospital and was given IV ceftriaxone along with doxycycline. Supportive care along with her routine home medications were provided. The patient also received IV ondansetron with which her nausea and vomiting improved. Her condition has been stable and she feels much better, although she still feels somewhat weak. Since her condition has improved, we are going to discharge her home today. She will take Ceftin along with doxycycline for a week and follow up with me in approximately one week for re-evaluation at the office as outpatient. DISCHARGE MEDICATIONS: 1. Ceftin 500 mg orally twice daily for 7 days. 2. Doxycycline 100 mg orally twice daily for 7 days. 3. Creon 53207 units 3 tablets with each meal as directed. 4. Digoxin 125 mcg orally once daily. 5. Furosemide 40 mg orally once daily in the morning. 6. Gabapentin 400 mg orally 3 times a day. 7. Toujeo insulin 10 units subcutaneously every 24 hours as directed. 8. Humalog insulin 7 units subcutaneously 3 times a day with meals plus sliding scale as directed up to 30 units a day. 9. Levothyroxine 50 mcg orally once daily. 10. Lisinopril 5 mg orally once daily. 11. Loratadine 10 mg orally once daily. 12. Metoprolol ER 50 mg 2 tablets in the morning and 1 tablet in the evening daily. 13. Omeprazole 40 mg orally once daily in the morning. 14. Potassium chloride 10 mEq orally once daily. 15. Xarelto 20 mg orally once daily. 16. Zolpidem 10 mg 1/2 to 1 tablet orally once daily at bedtime as needed for insomnia. FOLLOW-UP: She will follow up at the office in approximately one week. CONDITION: Stable. DISPOSITION: Home. cc: Odalys Brady MD
== END 2019-04-25 14:37 | disposition home or self-care (01) | DRG 194 ==
LOC: ED 07:52 → EDIPHOLD 11:26 → 1N 17:05
PROVIDERS: ADMIT Internal Medicine; ATTEND Internal Medicine